=== PATIENT | female | born 1945 | race African-American/Black ===

== ENCOUNTER 2018-02-25 01:56 | Inpatient (IN) | payer MEDICARE, MEDICAID ==
[~2018-02-25] VITALS: Ht 167.6 cm; Wt 100.9 kg
[2018-02-25] VITALS (7 sets, daily range): BP systolic 103–179; BP diastolic 58–100
[~2018-02-25 01:56] MED LIST: AMLO1CAP6 PO; CALC-4 PO; DIPH50TA19 PO; HYDR12.54 PO; INS7030 SUBCUT; ISOS60TA4 PO; MONT10TA21 PO; NAPR-681 PO; NAPR500T7 PO; PROAIR INH; SIMV20TA6 PO; VALS1TAB6 PO
[2018-02-25] MEDS ORDERED: IPRATROPIUM BROMIDE (0.02%) 0.5MG/2.5ML NEB HHN STA (02:03)
[2018-02-25] MEDS ORDERED: METHYLPREDNISOLONE SOD SUCC 125 MG/2 ML VIAL IV STA (02:03)
[2018-02-25] MEDS ORDERED: ONDANSETRON HCL 4MG/2ML INJ IV STA (02:03)
[2018-02-25] MEDS: ALBUTEROL (0.083%) 2.5MG/3ML NEB HHN SCH ×3 (02:30→03:35)
[2018-02-25 02:44] LABS: BG BASE EXCESS 0.1 mmol/L (-2.0-2.0); BG BILEVEL POS AIRWAY PRESSURE 15/5; BG CARBOXYHEMOGLOBIN 2.6 % (0.5-1.5); BG FRACTION INSPIRED OXYGEN 50; BG METHEMOGLOBIN 0.1 % (0.0-1.5); BG OXYGEN SATURATION 96.9 % (92.0-98.5); BG OXYHEMOGLOBIN 94.3 % (94.0-97.0); BG PCO2 60.9 mmHg (35.0-45.0); BG PH 7.281 (7.350-7.450); BG PO2 114.5 mmHg (75.0-100.0); BG SAMPLE SITE LEFT BRACHIAL; BG TOTAL HEMOGLOBIN 12.7 g/dL (12.0-18.0); BG VENT MODE MASK - BIPAP
[2018-02-25 03:03] LABS: CHLORIDE 109 mEq/L (98-107)
[2018-02-25 04:45] LABS: BASOPHILS % 0.6 % (0.0-2.0); EOSINOPHILS % 0.2 % (0.0-5.0); HEMATOCRIT. 37.3 % (36.0-48.0); HEMOGLOBIN. 12.3 g/dL (12.0-16.0); LYMPHOCYTES % 9.8 % (20.0-50.0); MEAN CORPUSCULAR VOLUME 96.6 fL (81.0-99.0); MEAN PLATELET VOLUME 9.5 fl (7.4-10.4); MONOCYTES % 2.2 % (2.0-8.0); NEUTROPHILS % 87.2 % (40.0-76.0); PLATELET 262 x1000/uL (130-400); RED BLOOD CELL COUNT 3.86 mill/uL (4.2-5.4); RED CELL DISTRIBUTION WIDTH 14.9 % (11.6-14.6)
[2018-02-25] MEDS ORDERED: DEXTROSE 50% WATER 50ML SYRINGE IV PRN (12:30)
[2018-02-25] MEDS: BLOOD SUGAR DIAGNOSTIC STRIP TEST SCH ×3 (12:30→21:00)
[2018-02-25] MEDS ORDERED: LISINOPRIL 20MG TABLET PO SCH (12:45)
[2018-02-25] MEDS ORDERED: ACETAMINOPHEN 650MG/20.3ML UDC GT PRN (12:45)
[2018-02-25] MEDS ORDERED: POTASSIUM CHLORIDE 20MEQ TABLET SR PO PRN (12:45)
[2018-02-25] MEDS: INSULIN LISPRO 100 UNITS/ML SUBCUT SCH ×3 (13:00→22:34)
[2018-02-25] MEDS ORDERED: IPRATROPIUM/ALBUTEROL 0.5-3(2.5)MG/3ML NEB HHN PRN (13:45)
[2018-02-25] MEDS: METHYLPREDNISOLONE SOD SUCC 40 MG/ML VIAL IV SCH (15:45)
[2018-02-25] MEDS: FUROSEMIDE 40MG/4ML VIAL IV SCH (17:36)
[2018-02-25] MEDS: POTASSIUM CHLORIDE 20MEQ TABLET SR PO SCH (17:36)
[2018-02-25] MEDS: LISINOPRIL 20MG TABLET PO SCH (17:39)
[2018-02-25] MEDS: IPRATROPIUM/ALBUTEROL 0.5-3(2.5)MG/3ML NEB HHN SCH (20:57)
[2018-02-25] MEDS: ISOSORB DINIT/HYDRALAZINE HCL 20/37.5MG TABLET PO SCH (21:06)
[2018-02-25] MEDS: ATORVASTATIN CALCIUM 40MG TABLET PO SCH (21:06)
[2018-02-25] MEDS: CARVEDILOL 3.125 MG TABLET PO SCH (21:06)
[2018-02-25] MEDS: INSULIN GLARGINE UD 100 UNITS/ML SYR SUBCUT SCH (22:35)
[2018-02-26] VITALS (17 sets, daily range): BP systolic 118–165; BP diastolic 58–103
[2018-02-26] MEDS: METHYLPREDNISOLONE SOD SUCC 40 MG/ML VIAL IV SCH ×2 (03:39→13:30)
[2018-02-26] MEDS: IPRATROPIUM/ALBUTEROL 0.5-3(2.5)MG/3ML NEB HHN SCH ×4 (04:09→21:13)
[2018-02-26] MEDS: FUROSEMIDE 40MG/4ML VIAL IV SCH ×2 (07:32→17:07)
[2018-02-26] MEDS: ISOSORB DINIT/HYDRALAZINE HCL 20/37.5MG TABLET PO SCH ×3 (07:33→21:50)
[2018-02-26] MEDS: BLOOD SUGAR DIAGNOSTIC STRIP TEST SCH ×4 (08:51→21:51)
[2018-02-26] MEDS: INSULIN LISPRO 100 UNITS/ML SUBCUT SCH ×4 (08:51→21:53)
[2018-02-26] MEDS: LISINOPRIL 20MG TABLET PO SCH ×2 (08:52→17:07)
[2018-02-26] MEDS: CARVEDILOL 3.125 MG TABLET PO SCH ×2 (08:52→21:51)
[2018-02-26] MEDS: POTASSIUM CHLORIDE 20MEQ TABLET SR PO SCH (08:52)
[2018-02-26] MEDS ORDERED: FUROSEMIDE 40MG/4ML VIAL IV SCH (09:00)
[2018-02-26 12:01] LABS: BASOPHILS % 0.1 % (0.0-2.0); HEMATOCRIT. 35.9 % (36.0-48.0); HEMOGLOBIN. 11.8 g/dL (12.0-16.0); LYMPHOCYTES % 10.4 % (20.0-50.0); MEAN CORPUSCULAR HEMOGLOBIN 32.2 pg (28.0-32.0); MEAN CORPUSCULAR VOLUME 97.7 fL (81.0-99.0); MEAN PLATELET VOLUME 9.2 fl (7.4-10.4); MONOCYTES % 3.8 % (2.0-8.0); NEUTROPHILS % 85.7 % (40.0-76.0); PLATELET 270 x1000/uL (130-400); RED BLOOD CELL COUNT 3.67 mill/uL (4.2-5.4); RED CELL DISTRIBUTION WIDTH 14.8 % (11.6-14.6)
[2018-02-26 12:12] LABS: CHLORIDE 105 mEq/L (98-107)
[2018-02-26 12:19] LABS: HDL CHOLESTEROL 54 mg/dL (40-59); LDL CHOLESTEROL 141 mg/dL (5-100)
[2018-02-26] MEDS: ATORVASTATIN CALCIUM 40MG TABLET PO SCH (21:50)
[2018-02-26] MEDS: INSULIN GLARGINE UD 100 UNITS/ML SYR SUBCUT SCH (21:53)
[2018-02-27] VITALS (12 sets, daily range): BP systolic 135–171; BP diastolic 61–94
[2018-02-27] MEDS: IPRATROPIUM/ALBUTEROL 0.5-3(2.5)MG/3ML NEB HHN SCH ×4 (02:44→21:37)
[2018-02-27] MEDS: ISOSORB DINIT/HYDRALAZINE HCL 20/37.5MG TABLET PO SCH ×3 (06:20→21:58)
[2018-02-27] MEDS: FUROSEMIDE 40MG/4ML VIAL IV SCH ×2 (06:20→16:35)
[2018-02-27 07:56] LABS: BASOPHILS % 0.3 % (0.0-2.0); HEMATOCRIT. 36.2 % (36.0-48.0); LYMPHOCYTES % 22.2 % (20.0-50.0); MEAN CORPUSCULAR HEMOGLOBIN 32.4 pg (28.0-32.0); MEAN CORPUSCULAR VOLUME 97.5 fL (81.0-99.0); MEAN PLATELET VOLUME 9.5 fl (7.4-10.4); MONOCYTES % 7.6 % (2.0-8.0); NEUTROPHILS % 69.9 % (40.0-76.0); PLATELET 268 x1000/uL (130-400); RED BLOOD CELL COUNT 3.71 mill/uL (4.2-5.4); RED CELL DISTRIBUTION WIDTH 14.9 % (11.6-14.6)
[2018-02-27] MEDS: BLOOD SUGAR DIAGNOSTIC STRIP TEST SCH ×4 (07:56→20:19)
[2018-02-27] MEDS: INSULIN LISPRO 100 UNITS/ML SUBCUT SCH ×4 (07:56→20:30)
[2018-02-27] MEDS: CARVEDILOL 3.125 MG TABLET PO SCH (08:23)
[2018-02-27] MEDS: POTASSIUM CHLORIDE 20MEQ TABLET SR PO SCH (08:23)
[2018-02-27] MEDS: LISINOPRIL 20MG TABLET PO SCH ×2 (08:24→16:35)
[2018-02-27 08:30] LABS: CHLORIDE 102 mEq/L (98-107)
[2018-02-27] MEDS ORDERED: PREDNISONE 20MG TABLET PO SCH (09:00)
[2018-02-27] MEDS: ENOXAPARIN 30MG/0.3ML SYR SUBCUT SCH ×2 (13:14→20:19)
[2018-02-27] MEDS: BUDESONIDE 0.5MG/2ML NEB HHN SCH ×2 (14:44→21:38)
[2018-02-27] MEDS: ATORVASTATIN CALCIUM 40MG TABLET PO SCH (20:17)
[2018-02-27] MEDS: AMLODIPINE 5MG TABLET PO SCH (20:19)
[2018-02-27] MEDS: INSULIN GLARGINE UD 100 UNITS/ML SYR SUBCUT SCH (22:07)
[2018-02-28] VITALS (9 sets, daily range): BP systolic 106–186; BP diastolic 63–102
[2018-02-28] MEDS: CLONIDINE 0.1MG TABLET PO PRN ×2 (02:25→12:12)
[2018-02-28] MEDS: ISOSORB DINIT/HYDRALAZINE HCL 20/37.5MG TABLET PO SCH ×2 (05:24→13:34)
[2018-02-28] MEDS: FUROSEMIDE 40MG/4ML VIAL IV SCH (06:54)
[2018-02-28] MEDS: INSULIN LISPRO 100 UNITS/ML SUBCUT SCH ×2 (08:00→12:09)
[2018-02-28] MEDS: BLOOD SUGAR DIAGNOSTIC STRIP TEST SCH ×2 (08:27→12:03)
[2018-02-28] MEDS: IPRATROPIUM/ALBUTEROL 0.5-3(2.5)MG/3ML NEB HHN SCH ×2 (08:31→13:43)
[2018-02-28] MEDS ORDERED: PREDNISONE 20MG TABLET PO SCH (09:00)
[2018-02-28] MEDS ORDERED: ISOS1TAB MT (09:35)
[2018-02-28] MEDS ORDERED: FURO-151 MT (09:35)
[2018-02-28] MEDS ORDERED: LISI-604 MT (09:35)
[2018-02-28] MEDS ORDERED: AMLO5TAB88 PO (09:35)
[2018-02-28] MEDS ORDERED: ATOR40TA70 MT (09:35)
[2018-02-28 09:49] LABS: BASOPHILS % 0.3 % (0.0-2.0); EOSINOPHILS % 0.4 % (0.0-5.0); HEMATOCRIT. 36.7 % (36.0-48.0); HEMOGLOBIN. 12.2 g/dL (12.0-16.0); LYMPHOCYTES % 42.5 % (20.0-50.0); MEAN CORPUSCULAR HEMOGLOBIN 32.2 pg (28.0-32.0); MEAN CORPUSCULAR VOLUME 96.8 fL (81.0-99.0); MEAN PLATELET VOLUME 9.5 fl (7.4-10.4); MONOCYTES % 10.3 % (2.0-8.0); NEUTROPHILS % 46.5 % (40.0-76.0); PLATELET 277 x1000/uL (130-400); RED BLOOD CELL COUNT 3.79 mill/uL (4.2-5.4); RED CELL DISTRIBUTION WIDTH 14.7 % (11.6-14.6)
[2018-02-28] MEDS: AMLODIPINE 5MG TABLET PO SCH (09:51)
[2018-02-28] MEDS: POTASSIUM CHLORIDE 20MEQ TABLET SR PO SCH (09:51)
[2018-02-28] MEDS: ENOXAPARIN 30MG/0.3ML SYR SUBCUT SCH (09:52)
[2018-02-28] MEDS: LISINOPRIL 20MG TABLET PO SCH (09:52)
[2018-02-28 12:22] LABS: CHLORIDE 98 mEq/L (98-107)
[2018-02-28] MEDS: BUDESONIDE 0.5MG/2ML NEB HHN SCH (13:44)
== END 2018-02-28 14:12 | disposition home or self-care (01) | DRG 291 ==
LOC: ER 01:56 → 5EST 04:45 → EDBEDREQSVC 04:49 → EDBEDREQ 04:49 → EDBEDREQTM 04:49 → ENRESERV 07:52
PROVIDERS: ADMIT Emergency Medicine; ATTEND Emergency Medicine
PROC: 5A09357 Assistance with Respiratory Ventilation, Less than 24 Consecutive Hours, Continuous Positive Airway Pressure (ICD-10-PCS; principal; 2018-02-25)
DX: I11.0 Hypertensive heart disease with heart failure (principal); J96.02 Acute respiratory failure with hypercapnia; N39.0 Urinary tract infection, site not specified; E87.2 Acidosis; J44.1 Chronic obstructive pulmonary disease with (acute) exacerbation; I50.43 Acute on chronic combined systolic (congestive) and diastolic (congestive) heart failure; I42.0 Dilated cardiomyopathy; E11.65 Type 2 diabetes mellitus with hyperglycemia; E66.01 Morbid (severe) obesity due to excess calories; E78.5 Hyperlipidemia, unspecified; F17.210 Nicotine dependence, cigarettes, uncomplicated; I25.10 Atherosclerotic heart disease of native coronary artery without angina pectoris; I25.5 Ischemic cardiomyopathy; Z79.4 Long term (current) use of insulin; Z68.35 Body mass index [BMI] 35.0-35.9, adult; Z82.49 Family history of ischemic heart disease and other diseases of the circulatory system; Z82.5 Family history of asthma and other chronic lower respiratory diseases; Z83.3 Family history of diabetes mellitus; Z91.14 Patient's other noncompliance with medication regimen; Z99.81 Dependence on supplemental oxygen; Z71.6 Tobacco abuse counseling; Z90.49 Acquired absence of other specified parts of digestive tract; Z79.899 Other long term (current) drug therapy; Z87.01 Personal history of pneumonia (recurrent)
CPT/HCPCS: 36415; 36600; 71045; 80048; 80061; 82375; 82805; 82962; 83036; 83735; 83880; 84484; 93005; 93306; 94640; 94660; 96374; 96375; 97162; 99291; J1650; J1815; J1940; J2405; J2920; J2930; J7512; J7611; J7620; J7626

== ENCOUNTER 2018-10-02 02:15 | Inpatient (IN) | payer MEDICARE, MEDICAID ==
[2018-10-02] VITALS (57 sets, daily range): BP systolic 124–204; BP diastolic 72–107
[~2018-10-02] VITALS: Ht 162.6 cm; Wt 97.8 kg
[~2018-10-02 02:15] MED LIST changes: -AMLO1CAP6 PO; +AMLO5TAB88 PO; +ATOR40TA70 MT; +FURO-151 MT; -HYDR12.54 PO; +ISOS1TAB MT; -ISOS60TA4 PO; +LISI-604 MT; -SIMV20TA6 PO; -VALS1TAB6 PO
[2018-10-02] MEDS ORDERED: ONDANSETRON HCL 4MG/2ML INJ IV STA (02:36)
[2018-10-02] MEDS ORDERED: MORPHINE SULFATE 4 MG/ML CPJ (NOT FOR IM USE) IV STA (02:36)
[2018-10-02] MEDS ORDERED: METHYLPREDNISOLONE SOD SUCC 125 MG/2 ML VIAL IV STA (02:36)
[2018-10-02] MEDS ORDERED: IPRATROPIUM BROMIDE (0.02%) 0.5MG/2.5ML NEB HHN STA (02:36)
[2018-10-02] MEDS ORDERED: NITROGLYCERIN 50MG PREMIX 250 ML IV ONE (02:39)
[2018-10-02] MEDS ORDERED: FENTANYL CITRATE/PF 500 MCG in SODIUM CHLORIDE 0.9% 40 ML IV PRN (02:45)
[2018-10-02] MEDS ORDERED: ETOMIDATE 2MG/ML 10ML VIAL IV ONE ×2 (02:45→10:20)
[2018-10-02] MEDS ORDERED: MIDAZOLAM HCL 50 MG in DEXTROSE 5% WATER 40 ML IV ONE ×2 (02:45→03:30)
[2018-10-02] MEDS ORDERED: SUCCINYLCHOLINE CHLORIDE 200MG/10ML IV ONE ×2 (02:45→10:20)
[2018-10-02] MEDS ORDERED: MAGNESIUM 2 G PREMIX 50 ML IV ONE (02:45)
[2018-10-02 02:56] LABS: BASOPHILS % 1.3 % (0.0-2.0); EOSINOPHILS % 1.5 % (0.0-5.0); HEMATOCRIT. 33.6 % (36.0-48.0); LYMPHOCYTES % 61.8 % (20.0-50.0); MEAN CORPUSCULAR HEMOGLOBIN 32.7 pg (28.0-32.0); MEAN CORPUSCULAR VOLUME 99.5 fL (81.0-99.0); MEAN PLATELET VOLUME 8.9 fl (7.4-10.4); MONOCYTES % 5.9 % (2.0-8.0); NEUTROPHILS % 29.5 % (40.0-76.0); PLATELET 266 x1000/uL (130-400); RED BLOOD CELL COUNT 3.37 mill/uL (4.2-5.4); RED CELL DISTRIBUTION WIDTH 14.9 % (11.6-14.6)
[2018-10-02 02:58] LABS: PROTHROMBIN TIME 10.3 sec (9.6-11.0)
[2018-10-02] MEDS ORDERED: ALBUTEROL (0.083%) 2.5MG/3ML NEB HHN SCH (03:00)
[2018-10-02 03:46] LABS: CHLORIDE 108 mEq/L (98-107)
[2018-10-02] MEDS: FENTANYL CITRATE/PF 500 MCG in SODIUM CHLORIDE 0.9% 40 ML IV PRN ×2 (04:04→07:49)
[2018-10-02 05:01] LABS: BG BASE EXCESS -3.1 mmol/L (-2.0-2.0); BG CARBOXYHEMOGLOBIN 0.3 % (0.5-1.5); BG DEOXYHEMOGLOBIN 1.3 % (0.0-5.0); BG FRACTION INSPIRED OXYGEN 100; BG HCO3 ACT 22.3 mmol/L (22.0-26.0); BG METHEMOGLOBIN 0.3 % (0.0-1.5); BG OXYGEN SATURATION 98.7 % (92.0-98.5); BG OXYHEMOGLOBIN 98.1 % (94.0-97.0); BG PCO2 41.4 mmHg (35.0-45.0); BG PO2 289.2 mmHg (75.0-100.0); BG SAMPLE SITE RIGHT RADIAL; BG TIDAL VOLUME(mL) 500 mL; BG TOTAL HEMOGLOBIN 14.6 g/dL (12.0-18.0); BG VENT MODE VENT - A/C; BG VENT RATE 16 set
[2018-10-02] MEDS ORDERED: MIDAZOLAM HCL 100 MG in DEXT 5% WATER 80 ML IV SCH (07:00)
[2018-10-02] MEDS: INSULIN LISPRO 100 UNITS/ML SUBCUT SCH ×4 (07:45→23:53)
[2018-10-02] MEDS ORDERED: DEXTROSE 50% WATER 50ML SYRINGE IV PRN (07:45)
[2018-10-02] MEDS: NITROGLYCERIN 50MG PREMIX 250 ML IV PRN ×3 (07:47→16:28)
[2018-10-02] MEDS: FENTANYL CITRATE/PF 1,000 MCG in SODIUM CHLORIDE 0.9% 80 ML IV SCH (08:55)
[2018-10-02] MEDS ORDERED: CLONIDINE 0.1MG TABLET NG NR (10:00)
[2018-10-02] MEDS ORDERED: VECURONIUM BROMIDE 10 MG/VIAL IV ONE (10:20)
[2018-10-02] MEDS ORDERED: SODIUM CHLORIDE 0.9% 10ML VIAL ONE (10:20)
[2018-10-02] MEDS ORDERED: IPRATROPIUM/ALBUTEROL 0.5-3(2.5)MG/3ML NEB HHN PRN (10:30)
[2018-10-02 10:46] LABS: CLARITY URINE CLEAR (CLEAR); COLOR URINE YELLOW (YELLOW); KETONES URINE NEGATIVE (NEGATIVE); LEUKOCYTE ESTERASE URINE NEGATIVE (NEGATIVE); NITRITE URINE NEGATIVE (NEGATIVE); OCCULT BLOOD URINE 1+ (NEGATIVE); PH URINE 5.5 (4.5-8.0); PROTEIN URINE NEGATIVE (NEGATIVE); SPECIFIC GRAVITY URINE 1.015 (1.005-1.030)
[2018-10-02] MEDS: BLOOD SUGAR DIAGNOSTIC STRIP TEST SCH ×3 (11:05→23:53)
[2018-10-02 11:06] LABS: *AMPHETAMINES SCREEN URINE NEGATIVE (NEGATIVE); *BARBITURATES SCREEN URINE NEGATIVE (NEGATIVE); *BENZODIAZEPINES SCREEN URINE PRESUMTIVE POSITIVE (NEGATIVE)
[2018-10-02 11:07] LABS: *COCAINE SCREEN URINE NEGATIVE (NEGATIVE); METHADONE URINE SCREEN NEGATIVE (NEGATIVE); OPIATES URINE SCREEN PRESUMTIVE POSITIVE (NEGATIVE); PHENCYCLIDINE URINE SCREEN NEGATIVE (NEGATIVE)
[2018-10-02 11:08] LABS: CANNABINOID URINE SCREEN NEGATIVE (NEGATIVE)
[2018-10-02] MEDS: PROPOFOL 10MG/ML 100ML 100 ML IV PRN ×2 (11:14→23:31)
[2018-10-02] MEDS: LANSOPRAZOLE 30MG DR CAPSULE NG SCH (11:15)
[2018-10-02] MEDS: ENOXAPARIN 40MG/0.4ML SYR SUBCUT SCH ×2 (11:15→21:22)
[2018-10-02] MEDS: IPRATROPIUM/ALBUTEROL 0.5-3(2.5)MG/3ML NEB HHN SCH ×3 (11:30→20:26)
[2018-10-02] MEDS: BUDESONIDE 0.5MG/2ML NEB HHN SCH ×2 (11:31→20:26)
[2018-10-02] MEDS: ASPIRIN 81MG TABLET NG SCH (11:53)
[2018-10-02] MEDS ORDERED: AMLODIPINE 5MG TABLET NG SCH (12:30)
[2018-10-02] MEDS: CLONIDINE 0.1MG TABLET NG SCH ×2 (15:08→21:23)
[2018-10-02] MEDS ORDERED: KCL 20MEQ/100ML PREMIX 100 ML IV NR (18:30)
[2018-10-02] MEDS: INSULIN GLARGINE UD 100 UNITS/ML SYR SUBCUT SCH (21:25)
[2018-10-02] MEDS ORDERED: SODIUM CHLORIDE 0.9% 250 ML IV ONE (23:15)
[2018-10-03] VITALS (105 sets, daily range): BP systolic 123–214; BP diastolic 70–160
[2018-10-03] MEDS: IPRATROPIUM/ALBUTEROL 0.5-3(2.5)MG/3ML NEB HHN SCH ×7 (00:23→23:50)
[2018-10-03] MEDS: NITROGLYCERIN 50MG PREMIX 250 ML IV PRN ×3 (00:56→18:14)
[2018-10-03] MEDS ORDERED: ALBUMIN HUMAN 25GM/500ML (5%) IV SCH (04:00)
[2018-10-03 05:29] LABS: BASOPHILS % 0.7 % (0.0-2.0); HEMATOCRIT. 29.8 % (36.0-48.0); MEAN CORPUSCULAR HEMOGLOBIN 32.5 pg (28.0-32.0); MEAN CORPUSCULAR VOLUME 96.5 fL (81.0-99.0); MEAN PLATELET VOLUME 9.2 fl (7.4-10.4); NEUTROPHILS % 54.3 % (40.0-76.0); PLATELET 182 x1000/uL (130-400); RED BLOOD CELL COUNT 3.09 mill/uL (4.2-5.4); RED CELL DISTRIBUTION WIDTH 14.5 % (11.6-14.6)
[2018-10-03] MEDS: CLONIDINE 0.1MG TABLET NG SCH ×3 (05:30→22:58)
[2018-10-03] MEDS: BLOOD SUGAR DIAGNOSTIC STRIP TEST SCH ×3 (05:31→18:00)
[2018-10-03] MEDS: INSULIN LISPRO 100 UNITS/ML SUBCUT SCH ×3 (05:31→18:00)
[2018-10-03 05:40] LABS: CHLORIDE 107 mEq/L (98-107)
[2018-10-03 05:45] LABS: PHOSPHORUS 2.7 mg/dL (2.5-4.9)
[2018-10-03] MEDS: PROPOFOL 10MG/ML 100ML 100 ML IV PRN (07:18)
[2018-10-03 07:53] LABS: BG BASE EXCESS -0.3 mmol/L (-2.0-2.0); BG CARBOXYHEMOGLOBIN 0.5 % (0.5-1.5); BG DEOXYHEMOGLOBIN 2.2 % (0.0-5.0); BG HCO3 ACT 22.5 mmol/L (22.0-26.0); BG METHEMOGLOBIN 0.3 % (0.0-1.5); BG OXYGEN SATURATION 97.8 % (92.0-98.5); BG PCO2 30.3 mmHg (35.0-45.0); BG PH 7.489 (7.350-7.450); BG PO2 131.5 mmHg (75.0-100.0); BG SAMPLE SITE RIGHT RADIAL; BG TIDAL VOLUME(mL) 500 mL; BG TOTAL HEMOGLOBIN 9.4 g/dL (12.0-18.0); BG VENT MODE VENT - A/C; BG VENT RATE 16 set
[2018-10-03] MEDS: BUDESONIDE 0.5MG/2ML NEB HHN SCH ×2 (08:20→20:02)
[2018-10-03] MEDS: ASPIRIN 81MG TABLET NG SCH (08:53)
[2018-10-03] MEDS: CARVEDILOL 3.125 MG TABLET NG SCH ×2 (08:54→21:00)
[2018-10-03] MEDS: ENOXAPARIN 40MG/0.4ML SYR SUBCUT SCH (08:55)
[2018-10-03] MEDS: INSULIN GLARGINE UD 100 UNITS/ML SYR SUBCUT SCH ×2 (08:56→22:59)
[2018-10-03] MEDS ORDERED: AMLODIPINE 2.5MG TABLET NG SCH (09:00)
[2018-10-03] MEDS: LANSOPRAZOLE 30MG DR CAPSULE NG SCH (09:17)
[2018-10-03 12:45] LABS: HEPATITIS B SURFACE ANTIGEN NEGATIVE
[2018-10-03 13:14] LABS: HEPATITIS A AB IGM NEGATIVE (NEGATIVE)
[2018-10-03] MEDS: FUROSEMIDE 40MG/4ML VIAL IVP SCH ×2 (14:08→18:06)
[2018-10-03] MEDS: POTASSIUM CHLORIDE 20MEQ/PACKET NG SCH (14:09)
[2018-10-03] MEDS: FENTANYL CITRATE/PF 1,000 MCG in SODIUM CHLORIDE 0.9% 80 ML IV SCH (18:06)
[2018-10-03] MEDS: METOCLOPRAMIDE HCL 10MG/2ML VIAL IV SCH (18:06)
[2018-10-03] MEDS: ENOXAPARIN 30MG/0.3ML SYR SUBCUT SCH (21:00)
[2018-10-03] MEDS ORDERED: VANCOMYCIN 1,750 MG in DEXT 5% WATER 250 ML IV NR (23:30)
[2018-10-04] VITALS (85 sets, daily range): BP systolic 108–176; BP diastolic 59–116
[2018-10-04] MEDS: BLOOD SUGAR DIAGNOSTIC STRIP TEST SCH ×4 (00:22→17:33)
[2018-10-04] MEDS: METOCLOPRAMIDE HCL 10MG/2ML VIAL IV SCH ×4 (00:27→17:32)
[2018-10-04] MEDS: INSULIN LISPRO 100 UNITS/ML SUBCUT SCH ×4 (00:43→17:43)
[2018-10-04] MEDS: NITROGLYCERIN 50MG PREMIX 250 ML IV PRN ×2 (00:55→09:07)
[2018-10-04] MEDS: IPRATROPIUM/ALBUTEROL 0.5-3(2.5)MG/3ML NEB HHN SCH ×5 (04:17→20:05)
[2018-10-04] MEDS: CLONIDINE 0.1MG TABLET NG SCH ×3 (05:09→22:18)
[2018-10-04 05:34] LABS: BASOPHILS % 0.3 % (0.0-2.0); EOSINOPHILS % 0.7 % (0.0-5.0); HEMATOCRIT. 29.6 % (36.0-48.0); LYMPHOCYTES % 22.1 % (20.0-50.0); MEAN CORPUSCULAR HEMOGLOBIN 32.6 pg (28.0-32.0); MEAN CORPUSCULAR VOLUME 96.5 fL (81.0-99.0); MEAN PLATELET VOLUME 8.3 fl (7.4-10.4); MONOCYTES % 14.9 % (2.0-8.0); PLATELET 218 x1000/uL (130-400); RED BLOOD CELL COUNT 3.07 mill/uL (4.2-5.4); RED CELL DISTRIBUTION WIDTH 14.8 % (11.6-14.6)
[2018-10-04 05:44] LABS: CHLORIDE 105 mEq/L (98-107)
[2018-10-04 07:14] LABS: HIV SCREEN 4G Non Reactive (Non Reactive)
[2018-10-04] MEDS ORDERED: KCL 20MEQ/100ML PREMIX 100 ML IV NR ×2 (08:00→19:00)
[2018-10-04] MEDS: BUDESONIDE 0.5MG/2ML NEB HHN SCH ×2 (08:48→20:05)
[2018-10-04] MEDS: POTASSIUM CHLORIDE 20MEQ/PACKET NG SCH ×2 (09:00→09:52)
[2018-10-04 09:07] LABS: BG BASE EXCESS 3.7 mmol/L (-2.0-2.0); BG CARBOXYHEMOGLOBIN 0.4 % (0.5-1.5); BG DEOXYHEMOGLOBIN 2.3 % (0.0-5.0); BG FRACTION INSPIRED OXYGEN 40; BG HCO3 ACT 28.9 mmol/L (22.0-26.0); BG OXYGEN SATURATION 97.7 % (92.0-98.5); BG OXYHEMOGLOBIN 97.3 % (94.0-97.0); BG PCO2 46.4 mmHg (35.0-45.0); BG PH 7.412 (7.350-7.450); BG PO2 121.6 mmHg (75.0-100.0); BG SAMPLE SITE RIGHT RADIAL; BG TIDAL VOLUME(mL) 500 mL; BG TOTAL HEMOGLOBIN 10.4 g/dL (12.0-18.0); BG VENT MODE VENT - A/C; BG VENT RATE 12 set
[2018-10-04] MEDS: ENOXAPARIN 30MG/0.3ML SYR SUBCUT SCH ×2 (09:08→21:24)
[2018-10-04] MEDS: FENTANYL CITRATE/PF 1,000 MCG in SODIUM CHLORIDE 0.9% 80 ML IV SCH (09:11)
[2018-10-04] MEDS: AMLODIPINE 5MG TABLET NG SCH ×2 (09:14→17:32)
[2018-10-04] MEDS: FAMOTIDINE 20MG TABLET NG SCH ×2 (09:14→21:24)
[2018-10-04] MEDS: ASPIRIN 81MG TABLET NG SCH (09:14)
[2018-10-04] MEDS: CARVEDILOL 3.125 MG TABLET NG SCH ×2 (09:14→21:24)
[2018-10-04] MEDS: FUROSEMIDE 40MG/4ML VIAL IVP SCH ×2 (09:52→17:32)
[2018-10-04] MEDS: INSULIN GLARGINE UD 100 UNITS/ML SYR SUBCUT SCH ×2 (10:00→22:18)
[2018-10-04] MEDS ORDERED: ALBUMIN HUMAN 25GM/100ML (25%) IV NR (11:52)
[2018-10-04] MEDS: VANCOMYCIN 1 G PREMIX 200 ML IV SCH (14:18)
[2018-10-05] VITALS (53 sets, daily range): BP systolic 98–172; BP diastolic 38–101
[2018-10-05] MEDS: IPRATROPIUM/ALBUTEROL 0.5-3(2.5)MG/3ML NEB HHN SCH ×6 (00:11→20:31)
[2018-10-05] MEDS: BLOOD SUGAR DIAGNOSTIC STRIP TEST SCH ×4 (00:31→18:00)
[2018-10-05] MEDS: METOCLOPRAMIDE HCL 10MG/2ML VIAL IV SCH ×4 (00:44→20:45)
[2018-10-05 05:10] LABS: BASOPHILS % 0.3 % (0.0-2.0); EOSINOPHILS % 0.6 % (0.0-5.0); HEMATOCRIT. 32.3 % (36.0-48.0); HEMOGLOBIN. 10.8 g/dL (12.0-16.0); LYMPHOCYTES % 15.9 % (20.0-50.0); MEAN CORPUSCULAR HEMOGLOBIN 32.6 pg (28.0-32.0); MEAN CORPUSCULAR VOLUME 96.8 fL (81.0-99.0); MEAN PLATELET VOLUME 8.7 fl (7.4-10.4); MONOCYTES % 11.5 % (2.0-8.0); NEUTROPHILS % 71.7 % (40.0-76.0); PLATELET 223 x1000/uL (130-400); RED BLOOD CELL COUNT 3.33 mill/uL (4.2-5.4); RED CELL DISTRIBUTION WIDTH 14.6 % (11.6-14.6)
[2018-10-05 05:16] LABS: CHLORIDE 100 mEq/L (98-107)
[2018-10-05] MEDS: CLONIDINE 0.1MG TABLET NG SCH ×3 (05:52→22:54)
[2018-10-05] MEDS: INSULIN LISPRO 100 UNITS/ML SUBCUT SCH ×4 (05:53→18:00)
[2018-10-05] MEDS: BUDESONIDE 0.5MG/2ML NEB HHN SCH (07:33)
[2018-10-05] MEDS ORDERED: KCL 20MEQ/100ML PREMIX 100 ML IV NR (08:00)
[2018-10-05] MEDS: VANCOMYCIN 1 G PREMIX 200 ML IV SCH (08:29)
[2018-10-05] MEDS: FUROSEMIDE 40MG/4ML VIAL IVP SCH ×2 (08:29→20:45)
[2018-10-05] MEDS: ASPIRIN 81MG TABLET NG SCH (08:30)
[2018-10-05] MEDS: CARVEDILOL 3.125 MG TABLET NG SCH ×2 (08:30→21:00)
[2018-10-05] MEDS: AMLODIPINE 5MG TABLET NG SCH ×2 (08:30→17:15)
[2018-10-05] MEDS: FAMOTIDINE 20MG TABLET NG SCH ×2 (08:31→21:20)
[2018-10-05] MEDS: ENOXAPARIN 30MG/0.3ML SYR SUBCUT SCH ×2 (08:31→21:25)
[2018-10-05] MEDS: POTASSIUM CHLORIDE 20MEQ/PACKET NG SCH (08:31)
[2018-10-05 08:35] LABS: BG BASE EXCESS 2.7 mmol/L (-2.0-2.0); BG CARBOXYHEMOGLOBIN 0.5 % (0.5-1.5); BG FRACTION INSPIRED OXYGEN 30; BG HCO3 ACT 28.1 mmol/L (22.0-26.0); BG METHEMOGLOBIN 0.3 % (0.0-1.5); BG OXYHEMOGLOBIN 93.2 % (94.0-97.0); BG PCO2 47.2 mmHg (35.0-45.0); BG PH 7.393 (7.350-7.450); BG PO2 77.9 mmHg (75.0-100.0); BG PRESSURE SUPPORT 12; BG SAMPLE SITE RIGHT RADIAL; BG TIDAL VOLUME(mL) 500 mL; BG TOTAL HEMOGLOBIN 10.6 g/dL (12.0-18.0); BG VENT MODE VENT - SIMV; BG VENT RATE 10 set
[2018-10-05] MEDS: FENTANYL CITRATE/PF 1,000 MCG in SODIUM CHLORIDE 0.9% 80 ML IV SCH (09:09)
[2018-10-05] MEDS: INSULIN GLARGINE UD 100 UNITS/ML SYR SUBCUT SCH ×2 (10:14→22:58)
[2018-10-05] MEDS: LORAZEPAM 2MG/ML CPJ IV PRN (16:53)
[2018-10-06] VITALS (39 sets, daily range): BP systolic 98–187; BP diastolic 58–111
[2018-10-06] MEDS: IPRATROPIUM/ALBUTEROL 0.5-3(2.5)MG/3ML NEB HHN SCH ×6 (00:38→20:31)
[2018-10-06] MEDS: METOCLOPRAMIDE HCL 10MG/2ML VIAL IV SCH ×4 (00:50→18:24)
[2018-10-06] MEDS: FENTANYL CITRATE/PF 1,000 MCG in SODIUM CHLORIDE 0.9% 80 ML IV SCH (02:39)
[2018-10-06] MEDS: VANCOMYCIN 1 G PREMIX 200 ML IV SCH (02:56)
[2018-10-06 05:48] LABS: BASOPHILS % 0.2 % (0.0-2.0); EOSINOPHILS % 1.9 % (0.0-5.0); HEMATOCRIT. 34.3 % (36.0-48.0); HEMOGLOBIN. 11.3 g/dL (12.0-16.0); LYMPHOCYTES % 17.8 % (20.0-50.0); MEAN CORPUSCULAR VOLUME 97.3 fL (81.0-99.0); MEAN PLATELET VOLUME 8.6 fl (7.4-10.4); MONOCYTES % 11.3 % (2.0-8.0); NEUTROPHILS % 68.8 % (40.0-76.0); PLATELET 235 x1000/uL (130-400); RED BLOOD CELL COUNT 3.53 mill/uL (4.2-5.4); RED CELL DISTRIBUTION WIDTH 14.3 % (11.6-14.6)
[2018-10-06] MEDS: CLONIDINE 0.1MG TABLET NG SCH ×3 (06:00→21:26)
[2018-10-06] MEDS: BLOOD SUGAR DIAGNOSTIC STRIP TEST SCH ×4 (06:00→18:16)
[2018-10-06] MEDS: INSULIN LISPRO 100 UNITS/ML SUBCUT SCH ×4 (06:51→18:00)
[2018-10-06] MEDS: POTASSIUM CHLORIDE 20MEQ/PACKET NG SCH (09:00)
[2018-10-06] MEDS: FUROSEMIDE 40MG/4ML VIAL IVP SCH (09:00)
[2018-10-06] MEDS: CARVEDILOL 3.125 MG TABLET NG SCH ×2 (09:00→21:00)
[2018-10-06] MEDS: AMLODIPINE 5MG TABLET NG SCH ×2 (09:00→17:00)
[2018-10-06] MEDS: ASPIRIN 81MG TABLET NG SCH (09:00)
[2018-10-06] MEDS: FAMOTIDINE 20MG TABLET NG SCH (09:00)
[2018-10-06] MEDS: ENOXAPARIN 30MG/0.3ML SYR SUBCUT SCH ×3 (09:30→21:31)
[2018-10-06 10:18] LABS: BG BASE EXCESS 3.5 mmol/L (-2.0-2.0); BG CARBOXYHEMOGLOBIN 0.3 % (0.5-1.5); BG DEOXYHEMOGLOBIN 4.7 % (0.0-5.0); BG FRACTION INSPIRED OXYGEN 35; BG HCO3 ACT 28.6 mmol/L (22.0-26.0); BG METHEMOGLOBIN 0.4 % (0.0-1.5); BG OXYGEN SATURATION 95.3 % (92.0-98.5); BG OXYHEMOGLOBIN 94.6 % (94.0-97.0); BG PCO2 45.9 mmHg (35.0-45.0); BG PH 7.413 (7.350-7.450); BG PO2 83.5 mmHg (75.0-100.0); BG PRESSURE SUPPORT 10; BG SAMPLE SITE RIGHT RADIAL; BG TOTAL HEMOGLOBIN 11.6 g/dL (12.0-18.0); BG VENT MODE VENT - CPAP
[2018-10-06] MEDS: INSULIN GLARGINE UD 100 UNITS/ML SYR SUBCUT SCH ×2 (11:17→21:25)
[2018-10-06] MEDS ORDERED: RACEPINEPHRINE 2.25% 0.5ML NEB VIAL ONE (11:36)
[2018-10-06] MEDS ORDERED: ACETYLCYSTEINE 100MG/ML 10% VIAL 4ML INH NR (12:00)
[2018-10-06 12:08] LABS: BG BASE EXCESS 3.6 mmol/L (-2.0-2.0); BG DEOXYHEMOGLOBIN 5.6 % (0.0-5.0); BG FRACTION INSPIRED OXYGEN 35; BG HCO3 ACT 29.2 mmol/L (22.0-26.0); BG METHEMOGLOBIN 0.1 % (0.0-1.5); BG OXYGEN SATURATION 94.3 % (92.0-98.5); BG OXYHEMOGLOBIN 93.3 % (94.0-97.0); BG PCO2 48.5 mmHg (35.0-45.0); BG PH 7.398 (7.350-7.450); BG PO2 77.3 mmHg (75.0-100.0); BG SAMPLE SITE RIGHT RADIAL; BG TOTAL HEMOGLOBIN 12.7 g/dL (12.0-18.0); BG VENT MODE MASK - AEROSOL
[2018-10-06] MEDS ORDERED: METHYLPREDNISOLONE SOD SUCC 125 MG/2 ML VIAL IV NR (15:15)
[2018-10-06] MEDS ORDERED: RACEPINEPHRINE 2.25% 0.5ML NEB VIAL HHN PRN (15:15)
[2018-10-06] MEDS: BUDESONIDE 0.5MG/2ML NEB HHN SCH ×2 (16:36→20:36)
[2018-10-07] VITALS (23 sets, daily range): BP systolic 114–192; BP diastolic 61–107
[2018-10-07] MEDS: IPRATROPIUM/ALBUTEROL 0.5-3(2.5)MG/3ML NEB HHN SCH ×6 (00:26→20:34)
[2018-10-07] MEDS: BLOOD SUGAR DIAGNOSTIC STRIP TEST SCH ×5 (00:47→23:43)
[2018-10-07] MEDS: LORAZEPAM 2MG/ML CPJ IV PRN ×2 (01:25→22:50)
[2018-10-07] MEDS: CLONIDINE 0.1MG TABLET NG SCH ×4 (02:22→21:06)
[2018-10-07 05:36] LABS: HEMOGLOBIN. 11.2 g/dL (12.0-16.0); MEAN CORPUSCULAR VOLUME 96.9 fL (81.0-99.0); MEAN PLATELET VOLUME 8.8 fl (7.4-10.4); PLATELET 245 x1000/uL (130-400); RED CELL DISTRIBUTION WIDTH 14.7 % (11.6-14.6)
[2018-10-07] MEDS: FUROSEMIDE 40MG/4ML VIAL IVP SCH ×2 (06:57→16:50)
[2018-10-07] MEDS: METOCLOPRAMIDE HCL 10MG/2ML VIAL IV SCH ×5 (06:57→23:32)
[2018-10-07] MEDS: INSULIN LISPRO 100 UNITS/ML SUBCUT SCH ×5 (06:58→23:43)
[2018-10-07] MEDS: ASPIRIN 81MG TABLET NG SCH (08:56)
[2018-10-07] MEDS: AMLODIPINE 5MG TABLET NG SCH ×2 (08:57→16:47)
[2018-10-07] MEDS: FAMOTIDINE 20MG TABLET NG SCH (08:57)
[2018-10-07] MEDS: CARVEDILOL 3.125 MG TABLET NG SCH ×2 (08:57→21:06)
[2018-10-07] MEDS: METHYLPREDNISOLONE SOD SUCC 40 MG/ML VIAL IV SCH ×2 (08:57→16:47)
[2018-10-07] MEDS: VANCOMYCIN 1250MG in DEXTROSE 5% WATER 250ML IV SCH (08:58)
[2018-10-07] MEDS: POTASSIUM CHLORIDE 20MEQ/PACKET NG SCH (08:58)
[2018-10-07] MEDS: ENOXAPARIN 30MG/0.3ML SYR SUBCUT SCH ×2 (08:58→21:07)
[2018-10-07] MEDS: BUDESONIDE 0.5MG/2ML NEB HHN SCH ×2 (09:24→20:34)
[2018-10-07] MEDS: INSULIN GLARGINE UD 100 UNITS/ML SYR SUBCUT SCH ×2 (10:14→21:07)
[2018-10-07 13:26] LABS: PLATELET ESTIMATE NORMAL
[2018-10-08] VITALS (10 sets, daily range): BP systolic 118–141; BP diastolic 56–76
[2018-10-08] MEDS: IPRATROPIUM/ALBUTEROL 0.5-3(2.5)MG/3ML NEB HHN SCH ×6 (04:42→20:02)
[2018-10-08] MEDS: METOCLOPRAMIDE HCL 10MG/2ML VIAL IV SCH ×3 (05:22→17:22)
[2018-10-08] MEDS: INSULIN LISPRO 100 UNITS/ML SUBCUT SCH ×3 (05:23→17:18)
[2018-10-08] MEDS: BLOOD SUGAR DIAGNOSTIC STRIP TEST SCH ×3 (05:23→17:22)
[2018-10-08] MEDS: CLONIDINE 0.1MG TABLET NG SCH ×3 (06:00→21:21)
[2018-10-08] MEDS: FUROSEMIDE 40MG/4ML VIAL IVP SCH (06:27)
[2018-10-08] MEDS: BUDESONIDE 0.5MG/2ML NEB HHN SCH ×2 (08:21→20:02)
[2018-10-08 08:41] LABS: BASOPHILS % 0.5 % (0.0-2.0); HEMATOCRIT. 36.7 % (36.0-48.0); HEMOGLOBIN. 12.2 g/dL (12.0-16.0); LYMPHOCYTES % 7.9 % (20.0-50.0); MEAN CORPUSCULAR HEMOGLOBIN 31.9 pg (28.0-32.0); MEAN CORPUSCULAR VOLUME 95.9 fL (81.0-99.0); NEUTROPHILS % 83.6 % (40.0-76.0); PLATELET 329 x1000/uL (130-400); RED BLOOD CELL COUNT 3.83 mill/uL (4.2-5.4); RED CELL DISTRIBUTION WIDTH 14.5 % (11.6-14.6)
[2018-10-08] MEDS: VANCOMYCIN 1250MG in DEXTROSE 5% WATER 250ML IV SCH (08:43)
[2018-10-08] MEDS: FAMOTIDINE 20MG TABLET NG SCH (08:43)
[2018-10-08] MEDS: ASPIRIN 81MG TABLET NG SCH (08:43)
[2018-10-08] MEDS: CARVEDILOL 3.125 MG TABLET NG SCH (08:44)
[2018-10-08] MEDS: AMLODIPINE 5MG TABLET NG SCH ×2 (08:44→17:22)
[2018-10-08] MEDS: POTASSIUM CHLORIDE 20MEQ/PACKET NG SCH (08:46)
[2018-10-08] MEDS: ENOXAPARIN 30MG/0.3ML SYR SUBCUT SCH ×2 (08:47→20:50)
[2018-10-08] MEDS: METHYLPREDNISOLONE SOD SUCC 40 MG/ML VIAL IV SCH ×2 (08:48→17:22)
[2018-10-08 08:59] LABS: PHOSPHORUS 3.7 mg/dL (2.5-4.9)
[2018-10-08] MEDS: INSULIN GLARGINE UD 100 UNITS/ML SYR SUBCUT SCH (10:31)
[2018-10-08] MEDS ORDERED: CARVEDILOL 6.25 MG TABLET PO SCH (21:00)
[2018-10-08] MEDS ORDERED: INSULIN GLARGINE UD 100 UNITS/ML SYR SUBCUT SCH (22:00)
[2018-10-09] MEDS ORDERED: FUROSEMIDE 40MG/4ML VIAL IVP SCH (09:00)
== END 2018-10-08 21:25 | DRG 870 ==
LOC: ER 02:29 → CVICU 03:51 → EDBEDREQ 04:00 → EDBEDREQTM 04:00 → ENRESERV 04:13 → 8WST 10-07 16:19
PROVIDERS: ADMIT Internal Medicine; ATTEND Internal Medicine
PROC: 0BH17EZ Insertion of Endotracheal Airway into Trachea, Via Natural or Artificial Opening (ICD-10-PCS; principal; 2018-10-02)
PROC: 5A1955Z Respiratory Ventilation, Greater than 96 Consecutive Hours (ICD-10-PCS; 2018-10-02)
PROC: 02HV33Z Insertion of Infusion Device into Superior Vena Cava, Percutaneous Approach (ICD-10-PCS; 2018-10-04)
PROC: B548ZZA Ultrasonography of Superior Vena Cava, Guidance (ICD-10-PCS; 2018-10-04)
DX: A41.9 Sepsis, unspecified organism (principal); J18.9 Pneumonia, unspecified organism; I50.43 Acute on chronic combined systolic (congestive) and diastolic (congestive) heart failure; J96.21 Acute and chronic respiratory failure with hypoxia; G93.41 Metabolic encephalopathy; J44.0 Chronic obstructive pulmonary disease with (acute) lower respiratory infection; E87.2 Acidosis; J44.1 Chronic obstructive pulmonary disease with (acute) exacerbation; I16.1 Hypertensive emergency; I42.9 Cardiomyopathy, unspecified; N17.9 Acute kidney failure, unspecified; E11.65 Type 2 diabetes mellitus with hyperglycemia; D50.9 Iron deficiency anemia, unspecified; E87.6 Hypokalemia; E86.0 Dehydration; E78.5 Hyperlipidemia, unspecified; I11.0 Hypertensive heart disease with heart failure; R74.0 Nonspecific elevation of levels of transaminase and lactic acid dehydrogenase [LDH]; I25.10 Atherosclerotic heart disease of native coronary artery without angina pectoris; I44.7 Left bundle-branch block, unspecified; G47.33 Obstructive sleep apnea (adult) (pediatric); R41.0 Disorientation, unspecified; I25.5 Ischemic cardiomyopathy; R13.10 Dysphagia, unspecified; Z99.81 Dependence on supplemental oxygen; Z79.4 Long term (current) use of insulin; Z79.899 Other long term (current) drug therapy; I25.2 Old myocardial infarction; Z82.49 Family history of ischemic heart disease and other diseases of the circulatory system; Z83.3 Family history of diabetes mellitus; Z90.49 Acquired absence of other specified parts of digestive tract; Z78.1 Physical restraint status; Z87.891 Personal history of nicotine dependence; Z87.01 Personal history of pneumonia (recurrent); Z68.37 Body mass index [BMI] 37.0-37.9, adult
CPT/HCPCS: 31500; 36415; 36600; 71045; 74018; 76770; 76937; 80048; 80202; 80305; 82375; 82550; 82805; 82962; 83036; 83605; 83735; 83880; 84100; 84145; 84478; 84484; 86705; 86709; 86803; 87070; 87340; 87389; 92610; 93005; 93306; 93970; 94002; 94003; 94640; 94660; 97116; 97162; 97166; 99291; C1725; J0330; J1650; J1815; J1940; J2060; J2250; J2270; J2405; J2704; J2765; J2920; J2930; J3010; J3370; J3475; J3480; J3490; J7040; J7050; J7060; J7608; J7611; J7620; J7626; P9041; P9047

== ENCOUNTER 2018-10-08 21:21 | Inpatient (IN) | payer MEDICARE, MEDICAID ==
[~2018-10-08] VITALS: Ht 162.6 cm; Wt 97.5 kg
[2018-10-08 21:30] VITALS: BP_SYST 136; BP_SYST 141; BP_DIAS 73; BP_DIAS 78
[2018-10-08] MEDS ORDERED: IPRATROPIUM/ALBUTEROL 0.5-3(2.5)MG/3ML NEB HHN PRN (23:45)
[2018-10-08] MEDS ORDERED: DEXTROSE 50% WATER 50ML SYRINGE IV PRN (23:45)
[2018-10-09] MEDS ORDERED: LORAZEPAM 2MG/ML CPJ IM PRN
[2018-10-09] MEDS: IPRATROPIUM/ALBUTEROL 0.5-3(2.5)MG/3ML NEB HHN SCH ×5 (00:30→20:36)
[2018-10-09] MEDS: METOCLOPRAMIDE 10MG/10 ML UDC PO SCH ×4 (06:00→17:05)
[2018-10-09] MEDS: CLONIDINE 0.1MG TABLET PO SCH ×3 (06:00→22:00)
[2018-10-09] MEDS: BLOOD SUGAR DIAGNOSTIC STRIP TEST SCH ×4 (06:26→20:55)
[2018-10-09 08:00] VITALS: BP 139/73
[2018-10-09] MEDS: FUROSEMIDE 40MG/4ML VIAL IVP SCH (08:18)
[2018-10-09] MEDS: METHYLPREDNISOLONE SOD SUCC 40 MG/ML VIAL IV SCH ×2 (08:18→16:41)
[2018-10-09] MEDS: INSULIN LISPRO 100 UNITS/ML SUBCUT SCH ×4 (09:00→21:00)
[2018-10-09] MEDS ORDERED: VANCOMYCIN 1,250 MG in DEXT 5% WATER 250 ML IV SCH ×2 (09:00→18:00)
[2018-10-09] MEDS: ASPIRIN 81MG TABLET PO SCH (09:33)
[2018-10-09] MEDS: AMLODIPINE 5MG TABLET PO SCH ×2 (09:34→20:55)
[2018-10-09] MEDS: POTASSIUM CHLORIDE 20MEQ/PACKET PO SCH (09:34)
[2018-10-09] MEDS: FAMOTIDINE 20MG TABLET PO SCH (09:34)
[2018-10-09] MEDS: CARVEDILOL 6.25 MG TABLET PO SCH ×2 (09:35→20:55)
[2018-10-09] MEDS: ACETAMINOPHEN 500MG TABLET PO PRN (09:36)
[2018-10-09] MEDS: ENOXAPARIN 30MG/0.3ML SYR SUBCUT SCH ×2 (09:52→20:55)
[2018-10-09] MEDS ORDERED: INSULIN GLARGINE UD 100 UNITS/ML SYR SUBCUT SCH (10:00)
[2018-10-09] MEDS: INSULIN GLARGINE UD 100 UNITS/ML SYR SUBCUT SCH ×2 (11:08→22:00)
[2018-10-09] MEDS ORDERED: BISACODYL 5MG TABLET PO PRN (15:30)
[2018-10-09 16:16] LABS: BASOPHILS % 0.6 % (0.0-2.0); EOSINOPHILS % 0.2 % (0.0-5.0); HEMATOCRIT. 35.8 % (36.0-48.0); LYMPHOCYTES % 18.4 % (20.0-50.0); MEAN CORPUSCULAR HEMOGLOBIN 32.1 pg (28.0-32.0); MEAN CORPUSCULAR VOLUME 95.7 fL (81.0-99.0); MEAN PLATELET VOLUME 8.7 fl (7.4-10.4); MONOCYTES % 14.8 % (2.0-8.0); PLATELET 317 x1000/uL (130-400); RED BLOOD CELL COUNT 3.74 mill/uL (4.2-5.4); RED CELL DISTRIBUTION WIDTH 14.5 % (11.6-14.6)
[2018-10-09 16:19] LABS: CHLORIDE 98 mEq/L (98-107)
[2018-10-09 16:27] LABS: T4 FREE 1.3 ng/dL (0.76-1.46)
[2018-10-09 16:38] LABS: FOLIC ACID (FOLATE) SERUM 6.4 ng/mL (>5.38)
[2018-10-09] MEDS: DOCUSATE SODIUM 100MG CAPSULE PO SCH (16:57)
[2018-10-09] MEDS: PREDNISONE 20MG TABLET PO SCH (18:25)
[2018-10-09] MEDS: POLYETHYLENE GLYCOL 3350 (17GM) 1 DOSE PACK PO SCH (20:00)
[2018-10-09 20:35] VITALS: BP 140/77
[2018-10-09] MEDS: BUDESONIDE 0.5MG/2ML NEB HHN SCH (20:37)
[2018-10-10] MEDS: IPRATROPIUM/ALBUTEROL 0.5-3(2.5)MG/3ML NEB HHN SCH ×4 (04:30→20:36)
[2018-10-10] MEDS: METOCLOPRAMIDE 10MG/10 ML UDC PO SCH ×5 (06:00→23:02)
[2018-10-10] MEDS: CLONIDINE 0.1MG TABLET PO SCH ×3 (06:35→23:02)
[2018-10-10] MEDS: BLOOD SUGAR DIAGNOSTIC STRIP TEST SCH ×4 (06:36→20:34)
[2018-10-10] MEDS: INSULIN LISPRO 100 UNITS/ML SUBCUT SCH ×4 (06:38→20:47)
[2018-10-10 07:21] LABS: BASOPHILS % 0.4 % (0.0-2.0); EOSINOPHILS % 0.4 % (0.0-5.0); HEMATOCRIT. 36.2 % (36.0-48.0); HEMOGLOBIN. 12.1 g/dL (12.0-16.0); MEAN CORPUSCULAR HEMOGLOBIN 31.9 pg (28.0-32.0); MEAN CORPUSCULAR VOLUME 95.6 fL (81.0-99.0); MEAN PLATELET VOLUME 8.3 fl (7.4-10.4); MONOCYTES % 11.3 % (2.0-8.0); NEUTROPHILS % 68.9 % (40.0-76.0); PLATELET 353 x1000/uL (130-400); RED BLOOD CELL COUNT 3.78 mill/uL (4.2-5.4); RED CELL DISTRIBUTION WIDTH 14.2 % (11.6-14.6)
[2018-10-10 07:44] LABS: PHOSPHORUS 3.8 mg/dL (2.5-4.9)
[2018-10-10 08:00] VITALS: BP 124/73
[2018-10-10] MEDS: FUROSEMIDE 40MG/4ML VIAL IVP SCH (09:00)
[2018-10-10] MEDS: POLYETHYLENE GLYCOL 3350 (17GM) 1 DOSE PACK PO SCH (09:00)
[2018-10-10] MEDS: DOCUSATE SODIUM 100MG CAPSULE PO SCH ×2 (09:03→17:20)
[2018-10-10] MEDS: CARVEDILOL 6.25 MG TABLET PO SCH ×2 (09:03→20:34)
[2018-10-10] MEDS: PREDNISONE 20MG TABLET PO SCH ×2 (09:03→17:20)
[2018-10-10] MEDS: POTASSIUM CHLORIDE 20MEQ/PACKET PO SCH (09:04)
[2018-10-10] MEDS: FAMOTIDINE 20MG TABLET PO SCH (09:04)
[2018-10-10] MEDS: AMLODIPINE 5MG TABLET PO SCH ×2 (09:04→20:34)
[2018-10-10] MEDS: ASPIRIN 81MG TABLET PO SCH (09:04)
[2018-10-10] MEDS: ENOXAPARIN 30MG/0.3ML SYR SUBCUT SCH ×2 (09:04→20:34)
[2018-10-10] MEDS: BUDESONIDE 0.5MG/2ML NEB HHN SCH ×2 (10:33→20:36)
[2018-10-10] MEDS: FUROSEMIDE 40MG TABLET PO SCH ×2 (11:12→20:36)
[2018-10-10] MEDS: INSULIN GLARGINE UD 100 UNITS/ML SYR SUBCUT SCH ×2 (11:21→21:02)
[2018-10-10 13:42] LABS: *AMPHETAMINES SCREEN URINE NEGATIVE (NEGATIVE); *BARBITURATES SCREEN URINE NEGATIVE (NEGATIVE); *BENZODIAZEPINES SCREEN URINE NEGATIVE (NEGATIVE); *COCAINE SCREEN URINE NEGATIVE (NEGATIVE); METHADONE URINE SCREEN NEGATIVE (NEGATIVE); OPIATES URINE SCREEN NEGATIVE (NEGATIVE)
[2018-10-10 13:43] LABS: CANNABINOID URINE SCREEN NEGATIVE (NEGATIVE); PHENCYCLIDINE URINE SCREEN NEGATIVE (NEGATIVE)
[2018-10-10 14:35] LABS: *AMPHETAMINES SCREEN URINE NEGATIVE (NEGATIVE); *BARBITURATES SCREEN URINE NEGATIVE (NEGATIVE); *BENZODIAZEPINES SCREEN URINE NEGATIVE (NEGATIVE); *COCAINE SCREEN URINE NEGATIVE (NEGATIVE); CANNABINOID URINE SCREEN NEGATIVE (NEGATIVE); METHADONE URINE SCREEN NEGATIVE (NEGATIVE); OPIATES URINE SCREEN NEGATIVE (NEGATIVE); PHENCYCLIDINE URINE SCREEN NEGATIVE (NEGATIVE)
[2018-10-10 18:40] LABS: CLARITY URINE CLEAR (CLEAR); COLOR URINE YELLOW (YELLOW); KETONES URINE NEGATIVE (NEGATIVE); LEUKOCYTE ESTERASE URINE TRACE (NEGATIVE); NITRITE URINE NEGATIVE (NEGATIVE); OCCULT BLOOD URINE NEGATIVE (NEGATIVE); PROTEIN URINE NEGATIVE (NEGATIVE); UROBILINOGEN URINE 0.2 E.U./dL (0.2-1.0)
[2018-10-10 20:00] VITALS: BP 126/69
[2018-10-10] MEDS: NITROFURANTOIN 100MG M/M CAPSULE PO SCH (20:34)
[2018-10-11] MEDS: IPRATROPIUM/ALBUTEROL 0.5-3(2.5)MG/3ML NEB HHN SCH ×6 (04:30→21:13)
[2018-10-11] MEDS: BLOOD SUGAR DIAGNOSTIC STRIP TEST SCH ×5 (05:57→21:43)
[2018-10-11] MEDS: CLONIDINE 0.1MG TABLET PO SCH ×3 (05:58→22:00)
[2018-10-11] MEDS: METOCLOPRAMIDE 10MG/10 ML UDC PO SCH ×3 (05:59→17:07)
[2018-10-11] MEDS: INSULIN LISPRO 100 UNITS/ML SUBCUT SCH ×4 (06:03→21:55)
[2018-10-11 06:58] LABS: BASOPHILS % 0.8 % (0.0-2.0); EOSINOPHILS % 0.3 % (0.0-5.0); HEMATOCRIT. 36.3 % (36.0-48.0); MEAN CORPUSCULAR HEMOGLOBIN 31.7 pg (28.0-32.0); MEAN CORPUSCULAR VOLUME 96.2 fL (81.0-99.0); MEAN PLATELET VOLUME 8.9 fl (7.4-10.4); MONOCYTES % 14.8 % (2.0-8.0); NEUTROPHILS % 60.1 % (40.0-76.0); PLATELET 303 x1000/uL (130-400); RED BLOOD CELL COUNT 3.78 mill/uL (4.2-5.4); RED CELL DISTRIBUTION WIDTH 14.6 % (11.6-14.6)
[2018-10-11 08:00] VITALS: BP 145/72
[2018-10-11 08:03] LABS: PHOSPHORUS 3.9 mg/dL (2.5-4.9)
[2018-10-11] MEDS: BUDESONIDE 0.5MG/2ML NEB HHN SCH ×2 (09:02→21:13)
[2018-10-11] MEDS: ASPIRIN 81MG TABLET PO SCH (09:04)
[2018-10-11] MEDS: CARVEDILOL 6.25 MG TABLET PO SCH ×2 (09:04→21:43)
[2018-10-11] MEDS: DOCUSATE SODIUM 100MG CAPSULE PO SCH ×2 (09:04→16:30)
[2018-10-11] MEDS: ACETAMINOPHEN 500MG TABLET PO PRN (09:05)
[2018-10-11] MEDS: FAMOTIDINE 20MG TABLET PO SCH (09:05)
[2018-10-11] MEDS: NITROFURANTOIN 100MG M/M CAPSULE PO SCH (09:05)
[2018-10-11] MEDS: PREDNISONE 20MG TABLET PO SCH ×2 (09:06→16:30)
[2018-10-11] MEDS: FUROSEMIDE 40MG TABLET PO SCH ×2 (09:06→16:30)
[2018-10-11] MEDS: AMLODIPINE 5MG TABLET PO SCH ×2 (09:07→21:43)
[2018-10-11] MEDS: ENOXAPARIN 30MG/0.3ML SYR SUBCUT SCH ×2 (09:08→21:43)
[2018-10-11] MEDS: POLYETHYLENE GLYCOL 3350 (17GM) 1 DOSE PACK PO SCH (09:08)
[2018-10-11] MEDS: INSULIN GLARGINE UD 100 UNITS/ML SYR SUBCUT SCH ×2 (10:46→21:55)
[2018-10-11] MEDS ORDERED: MECLIZINE 25MG TABLET PO PRN (13:00)
[2018-10-11] MEDS: LEVOFLOXACIN 250MG TABLET PO SCH (16:30)
[2018-10-11 20:00] VITALS: BP 141/71
[2018-10-12] MEDS: IPRATROPIUM/ALBUTEROL 0.5-3(2.5)MG/3ML NEB HHN SCH ×6 (01:00→19:51)
[2018-10-12] MEDS: METOCLOPRAMIDE 10MG/10 ML UDC PO SCH ×4 (01:24→17:55)
[2018-10-12] MEDS: CLONIDINE 0.1MG TABLET PO SCH ×3 (06:17→22:02)
[2018-10-12] MEDS: BLOOD SUGAR DIAGNOSTIC STRIP TEST SCH ×4 (06:17→21:00)
[2018-10-12] MEDS: INSULIN LISPRO 100 UNITS/ML SUBCUT SCH ×4 (06:26→22:22)
[2018-10-12 06:36] LABS: BASOPHILS % 0.4 % (0.0-2.0); EOSINOPHILS % 0.3 % (0.0-5.0); HEMATOCRIT. 34.6 % (36.0-48.0); HEMOGLOBIN. 11.6 g/dL (12.0-16.0); LYMPHOCYTES % 24.3 % (20.0-50.0); MEAN CORPUSCULAR HEMOGLOBIN 32.1 pg (28.0-32.0); MEAN CORPUSCULAR VOLUME 95.5 fL (81.0-99.0); MEAN PLATELET VOLUME 8.6 fl (7.4-10.4); MONOCYTES % 11.7 % (2.0-8.0); NEUTROPHILS % 63.3 % (40.0-76.0); PLATELET 357 x1000/uL (130-400); RED BLOOD CELL COUNT 3.62 mill/uL (4.2-5.4); RED CELL DISTRIBUTION WIDTH 14.2 % (11.6-14.6)
[2018-10-12 07:23] LABS: PHOSPHORUS 3.4 mg/dL (2.5-4.9)
[2018-10-12 08:00] VITALS: BP 160/66
[2018-10-12] MEDS: POLYETHYLENE GLYCOL 3350 (17GM) 1 DOSE PACK PO SCH (09:29)
[2018-10-12] MEDS: ASPIRIN 81MG TABLET PO SCH (09:29)
[2018-10-12] MEDS: ENOXAPARIN 30MG/0.3ML SYR SUBCUT SCH ×2 (09:29→21:00)
[2018-10-12] MEDS: DOCUSATE SODIUM 100MG CAPSULE PO SCH ×2 (09:30→16:31)
[2018-10-12] MEDS: CARVEDILOL 6.25 MG TABLET PO SCH ×2 (09:30→22:03)
[2018-10-12] MEDS: FAMOTIDINE 20MG TABLET PO SCH (09:30)
[2018-10-12] MEDS: FUROSEMIDE 40MG TABLET PO SCH ×2 (09:31→16:31)
[2018-10-12] MEDS: PREDNISONE 20MG TABLET PO SCH ×2 (09:31→16:31)
[2018-10-12] MEDS: AMLODIPINE 5MG TABLET PO SCH ×2 (09:31→22:03)
[2018-10-12] MEDS: INSULIN GLARGINE UD 100 UNITS/ML SYR SUBCUT SCH ×2 (09:40→22:19)
[2018-10-12] MEDS: LEVOFLOXACIN 250MG TABLET PO SCH (16:31)
[2018-10-12 20:00] VITALS: BP 136/74
[2018-10-13] MEDS: METOCLOPRAMIDE 10MG/10 ML UDC PO SCH ×4 (00:59→17:25)
[2018-10-13] MEDS: IPRATROPIUM/ALBUTEROL 0.5-3(2.5)MG/3ML NEB HHN SCH ×4 (02:41→20:02)
[2018-10-13] MEDS: BLOOD SUGAR DIAGNOSTIC STRIP TEST SCH ×4 (06:15→20:51)
[2018-10-13] MEDS: CLONIDINE 0.1MG TABLET PO SCH ×3 (06:15→23:00)
[2018-10-13] MEDS: INSULIN LISPRO 100 UNITS/ML SUBCUT SCH ×4 (06:16→21:43)
[2018-10-13 06:54] LABS: BASOPHILS % 0.9 % (0.0-2.0); EOSINOPHILS % 0.3 % (0.0-5.0); HEMATOCRIT. 33.6 % (36.0-48.0); HEMOGLOBIN. 11.2 g/dL (12.0-16.0); LYMPHOCYTES % 17.1 % (20.0-50.0); MEAN CORPUSCULAR HEMOGLOBIN 32.1 pg (28.0-32.0); MONOCYTES % 6.9 % (2.0-8.0); NEUTROPHILS % 74.8 % (40.0-76.0); PLATELET 344 x1000/uL (130-400); RED CELL DISTRIBUTION WIDTH 14.7 % (11.6-14.6)
[2018-10-13 07:49] VITALS: BP 124/73
[2018-10-13] MEDS: FAMOTIDINE 20MG TABLET PO SCH (08:26)
[2018-10-13] MEDS: PREDNISONE 20MG TABLET PO SCH ×2 (08:26→16:13)
[2018-10-13] MEDS: AMLODIPINE 5MG TABLET PO SCH ×2 (08:26→20:43)
[2018-10-13] MEDS: ASPIRIN 81MG TABLET PO SCH (08:26)
[2018-10-13] MEDS: DOCUSATE SODIUM 100MG CAPSULE PO SCH ×2 (08:26→16:15)
[2018-10-13] MEDS: FUROSEMIDE 40MG TABLET PO SCH ×2 (08:26→16:14)
[2018-10-13] MEDS: POLYETHYLENE GLYCOL 3350 (17GM) 1 DOSE PACK PO SCH (08:27)
[2018-10-13] MEDS: CARVEDILOL 6.25 MG TABLET PO SCH ×2 (08:27→20:42)
[2018-10-13] MEDS: ENOXAPARIN 30MG/0.3ML SYR SUBCUT SCH ×2 (08:27→20:43)
[2018-10-13] MEDS: INSULIN GLARGINE UD 100 UNITS/ML SYR SUBCUT SCH ×2 (10:41→21:43)
[2018-10-13] MEDS: LEVOFLOXACIN 250MG TABLET PO SCH (15:32)
[2018-10-13 20:19] VITALS: BP 156/86
[2018-10-14] MEDS: IPRATROPIUM/ALBUTEROL 0.5-3(2.5)MG/3ML NEB HHN SCH ×6 (00:09→21:31)
[2018-10-14] MEDS: METOCLOPRAMIDE 10MG/10 ML UDC PO SCH ×4 (00:44→17:49)
[2018-10-14] MEDS: CLONIDINE 0.1MG TABLET PO SCH ×3 (05:57→21:47)
[2018-10-14] MEDS: BLOOD SUGAR DIAGNOSTIC STRIP TEST SCH ×4 (06:04→20:51)
[2018-10-14] MEDS: INSULIN LISPRO 100 UNITS/ML SUBCUT SCH ×4 (06:28→21:53)
[2018-10-14 07:41] VITALS: BP 120/69
[2018-10-14] MEDS: FUROSEMIDE 40MG TABLET PO SCH ×2 (08:38→16:03)
[2018-10-14] MEDS: ASPIRIN 81MG TABLET PO SCH (08:38)
[2018-10-14] MEDS: AMLODIPINE 5MG TABLET PO SCH ×2 (08:38→20:49)
[2018-10-14] MEDS: FAMOTIDINE 20MG TABLET PO SCH (08:38)
[2018-10-14] MEDS: PREDNISONE 20MG TABLET PO SCH ×2 (08:38→16:03)
[2018-10-14] MEDS: DOCUSATE SODIUM 100MG CAPSULE PO SCH ×2 (08:39→16:03)
[2018-10-14] MEDS: CARVEDILOL 6.25 MG TABLET PO SCH ×2 (08:39→20:49)
[2018-10-14] MEDS: ENOXAPARIN 30MG/0.3ML SYR SUBCUT SCH ×2 (08:39→20:49)
[2018-10-14] MEDS: POLYETHYLENE GLYCOL 3350 (17GM) 1 DOSE PACK PO SCH (08:39)
[2018-10-14] MEDS: INSULIN GLARGINE UD 100 UNITS/ML SYR SUBCUT SCH ×2 (12:06→21:53)
[2018-10-14] MEDS: LEVOFLOXACIN 250MG TABLET PO SCH (16:03)
[2018-10-14 20:21] VITALS: BP 101/71
[2018-10-15] MEDS: METOCLOPRAMIDE 10MG/10 ML UDC PO SCH ×2 (01:13→06:34)
[2018-10-15] MEDS: IPRATROPIUM/ALBUTEROL 0.5-3(2.5)MG/3ML NEB HHN SCH ×2 (01:15→03:16)
[2018-10-15 06:18] LABS: BASOPHILS % 0.4 % (0.0-2.0); EOSINOPHILS % 0.1 % (0.0-5.0); HEMATOCRIT. 34.2 % (36.0-48.0); HEMOGLOBIN. 11.1 g/dL (12.0-16.0); LYMPHOCYTES % 21.9 % (20.0-50.0); MEAN CORPUSCULAR HEMOGLOBIN 31.1 pg (28.0-32.0); MEAN CORPUSCULAR VOLUME 95.6 fL (81.0-99.0); MEAN PLATELET VOLUME 8.4 fl (7.4-10.4); MONOCYTES % 8.8 % (2.0-8.0); NEUTROPHILS % 68.8 % (40.0-76.0); PLATELET 393 x1000/uL (130-400); RED BLOOD CELL COUNT 3.57 mill/uL (4.2-5.4)
[2018-10-15] MEDS: BLOOD SUGAR DIAGNOSTIC STRIP TEST SCH (06:33)
[2018-10-15] MEDS: CLONIDINE 0.1MG TABLET PO SCH (06:34)
[2018-10-15 08:00] VITALS: BP 134/62
[2018-10-15] MEDS: AMLODIPINE 5MG TABLET PO SCH (08:07)
[2018-10-15] MEDS: FAMOTIDINE 20MG TABLET PO SCH (08:07)
[2018-10-15] MEDS: ASPIRIN 81MG TABLET PO SCH (08:07)
[2018-10-15] MEDS: FUROSEMIDE 40MG TABLET PO SCH (08:07)
[2018-10-15] MEDS: CARVEDILOL 6.25 MG TABLET PO SCH (08:08)
[2018-10-15] MEDS: PREDNISONE 20MG TABLET PO SCH (08:08)
[2018-10-15] MEDS: DOCUSATE SODIUM 100MG CAPSULE PO SCH (08:08)
[2018-10-15] MEDS: ENOXAPARIN 30MG/0.3ML SYR SUBCUT SCH (08:08)
[2018-10-15] MEDS: POLYETHYLENE GLYCOL 3350 (17GM) 1 DOSE PACK PO SCH (08:08)
[2018-10-15] MEDS: INSULIN LISPRO 100 UNITS/ML SUBCUT SCH (09:00)
[2018-10-15 09:16] VITALS: BP 134/62
[2018-10-15] MEDS: INSULIN GLARGINE UD 100 UNITS/ML SYR SUBCUT SCH (10:14)
== END 2018-10-15 11:06 | disposition home health service (06) | DRG 91 ==
PROVIDERS: ADMIT Physical Medicine & Rehabilitation Spinal Cord Injury Medicine; ATTEND Internal Medicine
DX: G92 Toxic encephalopathy (principal); J96.20 Acute and chronic respiratory failure, unspecified whether with hypoxia or hypercapnia; I50.43 Acute on chronic combined systolic (congestive) and diastolic (congestive) heart failure; A41.9 Sepsis, unspecified organism; J18.9 Pneumonia, unspecified organism; J44.1 Chronic obstructive pulmonary disease with (acute) exacerbation; J44.0 Chronic obstructive pulmonary disease with (acute) lower respiratory infection; N17.9 Acute kidney failure, unspecified; E87.2 Acidosis; I13.0 Hypertensive heart and chronic kidney disease with heart failure and stage 1 through stage 4 chronic kidney disease, or unspecified chronic kidney disease; I16.1 Hypertensive emergency; E11.42 Type 2 diabetes mellitus with diabetic polyneuropathy; I25.10 Atherosclerotic heart disease of native coronary artery without angina pectoris; E11.65 Type 2 diabetes mellitus with hyperglycemia; R26.9 Unspecified abnormalities of gait and mobility; Z99.81 Dependence on supplemental oxygen; D50.9 Iron deficiency anemia, unspecified; E66.9 Obesity, unspecified; E78.5 Hyperlipidemia, unspecified; E87.6 Hypokalemia; F32.9 Major depressive disorder, single episode, unspecified; F41.9 Anxiety disorder, unspecified; I25.5 Ischemic cardiomyopathy; I44.7 Left bundle-branch block, unspecified; E11.22 Type 2 diabetes mellitus with diabetic chronic kidney disease; N18.9 Chronic kidney disease, unspecified; R13.10 Dysphagia, unspecified; Z79.899 Other long term (current) drug therapy; Z79.4 Long term (current) use of insulin; Z87.891 Personal history of nicotine dependence
CPT/HCPCS: 36415; 70551; 80048; 80202; 80305; 82140; 82607; 82746; 82962; 83036; 83735; 84100; 84134; 84145; 84439; 84443; 84481; 87077; 87186; 92523; 92610; 93970; 94618; 94640; 97110; 97112; 97116; 97162; 97167; 97530; 97535; C1893; J1650; J1815; J1940; J3370; J7060; J7512; J7620; J7626; J8597